=== PATIENT | male | born 1995 | race African-American/Black ===

== ENCOUNTER 2018-11-25 09:21 | Emergency (ER) | payer BC ==
[~2018-11-25] VITALS: Ht 182.9 cm; Wt 96.0 kg
[2018-11-25] MEDS ORDERED: BACITRACIN ZINC OINT UDPKT TOP ONE (10:15)
[2018-11-25] MEDS ORDERED: IBUPROFEN 800MG TABLET PO ONE (10:15)
[2018-11-25 11:45] VITALS: BP 125/66
== END 2018-11-25 11:55 | disposition home or self-care (01) ==
LOC: ER 09:21
DX: S00.83XA Contusion of other part of head, initial encounter (principal); S80.212A Abrasion, left knee, initial encounter; S50.01XA Contusion of right elbow, initial encounter; J45.909 Unspecified asthma, uncomplicated; F12.10 Cannabis abuse, uncomplicated; F17.210 Nicotine dependence, cigarettes, uncomplicated; V43.52XA Car driver injured in collision with other type car in traffic accident, initial encounter; Y93.89 Activity, other specified; Y92.488 Other paved roadways as the place of occurrence of the external cause
CPT/HCPCS: 73080; 99283; Z7610